=== PATIENT | male | born 1960 | race Caucasian/White ===

== ENCOUNTER 2017-01-21 07:41 | Emergency (ER) | payer OTHER ==
[2017-01-21] MEDS ORDERED: SODIUM CHLORIDE 0.9% 1,000 ML ONE ×2 (08:27→10:27)
[2017-01-21] MEDS ORDERED: ONDANSETRON 4 MG/2ML 2 ML VIAL ONE (08:27)
[2017-01-21] MEDS ORDERED: ASPIRIN CHEWTAB 81 MG TABLET ONE (08:28)
[2017-01-21] MEDS ORDERED: ACETAMINOPHEN 500 MG TABLET ONE (08:28)
[2017-01-21 08:37] LABS: ABSOLUTE NEUTROPHIL COUNT 7.9 K/mm3 (1.8-7.7); BASO % 0.2 % (0.2-1.0); EOS # 0.4 (0.0-0.5); EOS % 3.6 % (0.9-2.9); HEMATOCRIT 48.7 % (32.0-52.0); HEMOGLOBIN 16.7 gm/l (14.0-18.0); IMM NEUT # 0.1 K/mm3 (0-0.2); IMM NEUT% 0.4 % (0-1); LYMPH # 2.7 (1.0-4.8); LYMPH % 22.1 % (15-45); MEAN CELL VOLUME 92.9 fl (80.0-94.0); MEAN CORPUSCULAR HEMOGLOBIN 31.9 pg (27.0-31.0); MEAN CORPUSCULAR HGB CONC 34.3 g/dl (33.0-37.0); MEAN PLATELET VOLUME 10.4 fl (7.4-10.4); MONO % 8.1 % (4-12); NEUT % 65.6 % (43-75); PLATELET COUNT 169 K/mm3 (130-400)
[2017-01-21 08:55] LABS: I-STAT CREATININE 0.6 mg/dL (0.6-1.3)
--- NOTE | 2017-01-21 09:11 | RAD ---
CHEST 2 VIEWS HISTORY: Vomiting and abdominal cramps. Frontal and lateral chest radiographs dated 3 x 17. COMPARISON: None. FINDINGS: FOCAL AIRSPACE OPACITY: No gross airspace consolidation. PLEURAL EFFUSION: None. CARDIOMEDIASTINAL SILHOUETTE: Mildly tortuous aorta. Nonenlarged cardiac silhouette PNEUMOTHORAX: None identified. OSSEOUS STRUCTURES: No grossly destructive lesions. IMPRESSION: No acute cardiopulmonary process noted.
--- NOTE | 2017-01-21 09:13 | RAD ---
RIGHT KNEE 4 VIEWS HISTORY: Status post fall with right knee pain. Frontal, lateral, and bilateral oblique views of the right knee. COMPARISON: None. ALIGNMENT: Grossly unremarkable.. JOINT SPACES: Preserved. Minor osteophyte formation at the lateral compartment. JOINT EFFUSION: None identified. CALCIFICATIONS: No abnormal calcifications noted. FRACTURE: No displaced acute fracture. SOFT TISSUES: Minor prepatellar and infrapatellar soft tissue swelling. IMPRESSION: No malalignment, joint effusion, or displaced acute fracture noted. Prepatellar and infrapatellar soft tissue prominence compatible with direct injury. Early osteoarthritic change of the lateral tibiofemoral compartment.
[2017-01-21 10:08] LABS: SPECIFIC GRAVITY 1.025 (1.001-1.030); URINE BILIRUBIN 1+ (NEGATIVE); URINE BLOOD NEGATIVE (NEGATIVE); URINE GLUCOSE (UA) NEGATIVE (NEGATIVE); URINE LEUKOCYTE ESTERASE NEGATIVE (NEGATIVE); URINE NITRITE NEGATIVE (NEGATIVE); URINE PROTEIN 1+ (NEGATIVE); URINE UROBILINOGEN 1 mg/dL (0-1 mg/dl)
[2017-01-21 10:09] LABS: URINE APPEARANCE CLEAR; URINE COLOR AMBER
[2017-01-21 10:26] LABS: URINE CRYSTALS 0 /hpf; URINE EPITHELIAL CELLS 0-3 /hpf; URINE RBC 0 /hpf; URINE WBC NEG /hpf
[2017-01-21 10:27] LABS: URINE BACTERIA FEW; URINE MUCUS 4+
[2017-01-21 11:40] LABS: ALB/GLOB RATIO 0.9 (>1.0); ALBUMIN 3.5 gm/dL (3.5-5.7); CALCIUM 8.9 mg/dL (8.6-10.3)
--- NOTE | 2017-01-21 13:03 | US ---
LIMITED ABDOMINAL ULTRASOUND HISTORY: Right upper quadrant pain. Limited sonography of the right upper quadrant performed. FINDINGS: GALLBLADDER LENGTH: 5.9 cm. GALLBLADDER WALL THICKNESS: 2.3 mm. GALLBLADDER CONTENT: No stones or sludge identified. SONOGRAPHIC POON'S SIGN: Present. COMMON BILE DUCT CALIBER: 3 mm. REGIONAL FREE FLUID: Probable 1.7 cm gallstone at the gallbladder neck IMPRESSION: Probable 1.7 cm gallstone at the gallbladder neck, associated tenderness. No wall thickening, biliary dilatation, or pericholecystic fluid. Findings discussed with Dr. Hollingsworth of the Emergency Medicine clinical service on 01/21/2017 at 1300 hours.
[2017-01-21 16:11] LABS: CHOLESTEROL RISK RATIO 3.1 (4.0-6.7)
[2017-01-21 20:56] LABS: A1C-GLYCOHEMOGLOBIN 1.1 g/dl; HEMOGLOBIN-GLYCO 15.4 g/dl
== END 2017-01-21 13:40 | disposition home or self-care (01) ==
LOC: ED 07:41
DX: K80.80 Other cholelithiasis without obstruction (principal); R79.89 Other specified abnormal findings of blood chemistry; R11.10 Vomiting, unspecified; E11.9 Type 2 diabetes mellitus without complications; E78.5 Hyperlipidemia, unspecified; I10 Essential (primary) hypertension; F17.210 Nicotine dependence, cigarettes, uncomplicated
CPT/HCPCS: 83690; 82150; 85025; 80053; 83036; 80061; 84484; 81001; 71020; 73564; 76705; 99284 ×2; 96374; 96361; 51798; 93005; A9270 ×2; J2405; J7030 ×2